=== PATIENT | female | born 1995 | race Caucasian/White ===

== ENCOUNTER 2019-01-30 18:01 | Emergency (ER) | payer OTHER ==
[~2019-01-30] VITALS: Ht 152.4 cm; Wt 63.5 kg
[~2019-01-30 18:01] MED LIST: NEXIUM20 MG/PACK; ZANTAC150 M1
[2019-01-30] MEDS ORDERED: PRENATABS FA T1 EACH PO (20:55)
[2019-01-30] MEDS ORDERED: ESGIC 50-325-41 EACH PO (22:54)
== END 2019-01-30 22:57 | disposition home or self-care (01) ==
LOC: ER 18:01
DX: G43.909 Migraine, unspecified, not intractable, without status migrainosus (principal)

== ENCOUNTER 2019-08-30 13:30 | Inpatient (IN) | payer OTHER ==
[~2019-08-30] VITALS: Ht 152.4 cm; Wt 3.2 kg
[~2019-08-30 13:30] MED LIST changes: +ESGIC 50-325-41 EACH PO; +PRENATABS FA T1 EACH PO
[2019-09-07] MEDS ORDERED: IBUPROFEN800 MG PO (07:15)
[2019-09-07] MEDS ORDERED: SENOKOT8.6 M1 PO (07:15)
[2019-09-07] MEDS ORDERED: SIMETHICONE125 M1 PO (07:15)
== END 2019-09-07 12:39 | disposition home or self-care (01) | DRG 785 ==
LOC: OB/GYN 09-04 05:13 → O/R 09-04 05:13 → OB/GYN 09-04 07:00
PROVIDERS: ADMIT Obstetrics & Gynecology; ATTEND Obstetrics & Gynecology
PROC: 0UL70ZZ Occlusion of Bilateral Fallopian Tubes, Open Approach (ICD-10-PCS; 2019-09-04)
PROC: 4A1HXCZ Monitoring of Products of Conception, Cardiac Rate, External Approach (ICD-10-PCS; 2019-09-04)
PROC: 10D00Z1 Extraction of Products of Conception, Low, Open Approach (ICD-10-PCS; principal; 2019-09-04 07:00)
DX: O82 Encounter for cesarean delivery without indication (principal); Z3A.39 39 weeks gestation of pregnancy; Z37.0 Single live birth; Z30.2 Encounter for sterilization